=== PATIENT | female | born 1950 | race Caucasian/White ===

== ENCOUNTER 2021-01-24 08:07 | Emergency (ER) | payer OTHER ==
[2021-01-24] MEDS ORDERED: MORPHINE 2 MG/ML SYR ONE (09:13)
[2021-01-24] MEDS ORDERED: FAMOTIDINE 20 MG/2 ML VIAL IV ONE (09:14)
[2021-01-24] MEDS ORDERED: ONDANSETRON 4 MG/2 ML VIAL ONE (09:14)
[2021-01-24 09:34] LABS: Protime INR 1.01
[2021-01-24 09:35] LABS: Absolute Lymphocytes (CBC) 1.4 K/uL (0.7-4.9); Basophils % 1.1 % (0-1.3); Hematocrit 38.3 % (36.0-45.0); RBC Red Blood Cell Count 4.54 M/uL (3.86-4.86)
[2021-01-24 09:41] LABS: ALT/SGPT 22 U/L (12-78); AST/SGOT 12 U/L (15-37); Albumin 3.7 g/dL (3.4-5.0); Alkaline Phosphatase 117 U/L (45-117); BUN Blood Urea Nitrogen 18 mg/dL (7-18); Bicarbonate 27 mmol/L (21-32); Bilirubin Direct 0.1 mg/dL (0-0.2); Bilirubin Total 0.5 mg/dL (0.2-1.0); Glucose Level 103 mg/dL (74-106); Magnesium 2.2 mg/dL (1.8-2.4); NT PRO-BNP 135 pg/mL (<125); Potassium 3.6 mmol/L (3.5-5.1); Protein, Total 6.9 g/dL (6.4-8.2); Sodium Level 143 mmol/L (136-145); Troponin (Emerg Dept Use Only) < 0.02 ng/mL (0.0-0.045)
--- NOTE | 2021-01-24 10:50 | RAD REPORT ---
EXAM DESCRIPTION: CT - Abdomen Pelvis W Contrast - 01/24/2021 9:51 am CLINICAL HISTORY: ABD PAIN COMPARISON: No comparisons TECHNIQUE: Biphasic, helical CT imaging of the abdomen and pelvis was performed following 100 ml non -ionic IV contrast. No oral contrast administered. All CT scans are performed using dose optimization technique as appropriate and may include automated exposure control or mA/KV adjustment according to patient size. FINDINGS: No suspicious findings in the lung bases. The liver, spleen, and pancreas show no suspicious findings. Gallbladder and biliary tree are also wi thout suspicious finding. 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 These are gener ally incidental. Symmetric renal function is seen with no hydronephrosis or suspicious renal mass. No pyelonephritis o r acute parenchymal process. No bladder abnormalities. No adrenal abnormalities. Posterior right retr oflexed uterus shows no suspicious finding. No ovarian abnormality identifiable. No dilated bowel loops or bowel wall thickening. Appendix is normal. Moderate stool volume distends t he rectum and distal sigmoid colon. There is moderate stool volume elsewhere in the colon. No free air, pneumatosis or abnormal fluid collection. No hernia, mass or bulky lymphadenopathy. No suspicious bony findings. IMPRESSION: Contrast enhanced CT abdomen and pelvis showing no acute or emergent finding.
--- NOTE | 2021-01-24 11:03 | RAD REPORT ---
EXAM DESCRIPTION: RAD - Chest Single View - 01/24/2021 10:07 am CLINICAL HISTORY: Upper abdominal pain and SOB COMPARISON: August 2015 TECHNIQUE: AP portable chest image was obtained 01/24/2021 10:07 am . FINDINGS: Lungs are clear. Heart and vasculature are normal. No measurable pleural effusion and no p neumothorax. No acute bony abnormality seen. No acute aortic findings suspected. Insert stable IMPRESSION: No acute cardiopulmonary process.
--- NOTE | 2021-01-24 12:38 | EKG ---
Test Date: 2021-01-24 Test Time: 08:44:57 [place]: ALP MEASUREMENT RESULTS: Intervals: Rate: 65 [place]: 140 QRSD: 92 QT: 418 QTc: 434 [place]: P: 72 [place]: 140 QRS: 6 T: 10 INTERPRETIVE STATEMENTS: Sinus rhythm with occasional premature ventricular complexes Low voltage QRS Borderline ECG Compared to ECG 09/05/2015 03:28:17 Ventricular premature complex(es) now present Low QRS voltage now present ST (T wave) deviation no longer present Electronically Signed On 01-24-21 12:37:13 CDT by Arnaud Seo
--- NOTE | 2021-01-24 12:46 | EDPHYS ---
Physician Documentation [facility] Name: Beatrice Woods Age: 70 yrs Sex: Female : 1950 Arrival Date: 01/24/2021 Time: 08:11 Bed 14 Private MD: Jeet Thurman H ED Physician Tirso Zhao HPI: 01/24 08:59 This 70 yrs old Female presents to ER via Wheelchair with complaints of kdr Shortness Of Breath, rib pain. 08:59 The patient has shortness of breath at rest, with light activity. Onset: The kdr symptoms/episode began/occurred suddenly, just prior to arrival, this morning. Duration: The symptoms are intermittent, with no pattern. The patient's shortness of breath is aggravated by nothing, is alleviated by nothing. Associated signs and symptoms: The patient has no apparent associated signs or symptoms. Severity of symptoms: At their worst the symptoms were moderate severe just prior to arrival, in the emergency department the symptoms have improved moderately. The patient has not experienced similar symptoms in the past. The patient has not recently seen a physician. 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 - Social history:: Smoking status: Patient denies any tobacco usage or history of. ROS: 08:59 Constitutional: Negative for fever, chills, and weight loss, Eyes: Negative for injury, kdr pain, redness, and discharge, ENT: Negative for injury, pain, and discharge, Neck: Negative for injury, pain, and swelling, Cardiovascular: Negative for chest pain, palpitations, and edema, Respiratory: Negative for shortness of breath, cough, wheezing, and pleuritic chest pain, Back: Negative for injury and pain, : Negative for injury, bleeding, discharge, and swelling, MS/Extremity: Negative for injury and deformity, Skin: Negative for injury, rash, and discoloration, Neuro: Negative for headache, weakness, numbness, tingling, and seizure activity. Psych: Negative for depression, anxiety, suicide ideation, homicidal ideation, and hallucinations, Allergy/Immunology: Negative for hives, rash, and allergies, Endocrine: Negative for neck swelling, polydipsia, polyuria, polyphagia, and marked weight changes, Hematologic/Lymphatic: Negative for swollen nodes, abnormal bleeding, and unusual bruising. 08:59 Abdomen/GI: Positive for abdominal pain, nausea, Negative for diarrhea, constipation, black/tarry stool, rectal pain, rectal bleeding, bowel incontinence. Exam: 08:59 Constitutional: This is a well developed, well nourished patient who is awake, alert, kdr and in no acute distress. Head/Face: Normocephalic, atraumatic. Eyes: Pupils equal round and reactive to light, extra-ocular motions intact. Lids and lashes normal. Conjunctiva and sclera are non-icteric and not injected. Cornea within normal limits. Periorbital areas with no swelling, redness, or edema. Neck: Trachea midline, no thyromegaly or masses palpated, and no cervical lymphadenopathy. Supple, full range of motion without nuchal rigidity, or vertebral point tenderness. No Meningismus. Chest/axilla: Normal chest wall appearance and motion. Nontender with no deformity. No lesions are appreciated. Cardiovascular: Regular rate and rhythm with a normal S1 and S2. No gallops, murmurs, or rubs. Normal PMI, no JVD. No pulse deficits. Respiratory: Lungs have equal breath sounds bilaterally, clear to auscultation and percussion. No rales, rhonchi or wheezes noted. No increased work of breathing, no retractions or nasal flaring. Abdomen/GI: Soft, non-tender, with normal bowel sounds. No distension or tympany. No guarding or rebound. No evidence of tenderness throughout. Back: No spinal tenderness. No costovertebral tenderness. Full range of motion. Skin: Warm, dry with normal turgor. Normal color with no rashes, no lesions, and no evidence of cellulitis. MS/ Extremity: Pulses equal, no cyanosis. Neurovascular intact. Full, normal range of motion. Neuro: Awake and alert, GCS 15, oriented to person, place, time, and situation. Cranial nerves II-XII grossly intact. Motor strength 5/5 in all extremities. Sensory grossly intact. Cerebellar exam normal. Normal gait. Psych: Awake, alert, with orientation to person, place and time. Behavior, mood, and affect are within normal limits. 19:11 ECG was reviewed by the Attending Physician. kdr Vital Signs: 08:12 BP 121 / 83; Pulse 72; Resp 16; Temp 98.1; Pulse Ox 99% on R/A; Weight 72.57 kg; Height iw 5 ft. 4 in. (162.56 cm); 08:38 BP 135 / 87; Pulse 62; Resp 19; Pulse Ox 100% on R/A; ap3 10:08 BP 121 / 62; Pulse 55; Resp 16; Pulse Ox 100% on R/A; Pain 0/10; ap3 10:52 BP 125 / 76; Pulse 54; Resp 17; Pulse Ox 100% on R/A; ap3 11:48 BP 120 / 69; Pulse 62; Pulse Ox 100% on R/A; ap3 12:37 BP 104 / 71; Pulse 57; Resp 17; Pulse Ox 100% on R/A; ap3 08:12 Body Mass Index 27.46 (72.57 kg, 162.56 cm) iw MDM: 08:59 Data reviewed: vital signs, nurses notes, lab test result(s), radiologic studies. kdr Counseling: I had a detailed discussion with the patient and/or guardian regarding: the historical points, exam findings, and any diagnostic results supporting the discharge/admit diagnosis, lab results, radiology results, the need for outpatient follow up. 12:46 Patient medically screened. kdr 01/24 08:47 Order name: Basic Metabolic Panel kdr 01/24 08:47 Order name: CBC with Diff kdr 01/24 08:47 Order name: LFT's; Complete Time: 10:06 kdr 01/24 08:47 Order name: Magnesium; Complete Time: 10:06 kdr 01/24 08:47 Order name: NT PRO-BNP; Complete Time: 10:06 kdr 01/24 08:47 Order name: PT-INR; Complete Time: 10:06 kdr 01/24 08:47 Order name: Troponin (emerg Dept Use Only); Complete Time: 10:06 kdr 01/24 08:47 Order name: XRAY Chest (1 view); Complete Time: 11:09 kdr 01/24 08:48 Order name: CT Abd/Pelvis - IV Contrast Only; Complete Time: 11:09 kdr 01/24 08:48 Order name: Basic Metabolic Panel; Complete Time: 10:06 EDMS 01/24 08:48 Order name: CBC with Automated Diff; Complete Time: 10:06 [facility] 01/24 10:37 Order name: CREATININE WHOLE BLOOD; Complete Time: 11:09 [facility] 01/24 11:10 Order name: Troponin (emerg Dept Use Only); Complete Time: 12:43 kdr 01/24 08:47 Order name: EKG; Complete Time: 08:49 [facility] 01/24 08:47 Order name: Cardiac monitoring; Complete Time: 09:14 [facility] 01/24 08:47 Order name: EKG - Nurse/Tech; Complete Time: 08:49 kdr 01/24 08:47 Order name: IV Saline Lock; Complete Time: 09:14 kdr 01/24 08:47 Order name: Labs collected and sent; Complete Time: 09:14 [facility] 01/24 08:47 Order name: O2 Per Protocol; Complete Time: 08:49 kdr 01/24 08:47 Order name: O2 Sat Monitoring; Complete Time: 08:49 kdr EC:11 Rate is 62 beats/min. Rhythm is regular, Sinus Rhythm with No ectopy. QRS [place] is kdr Normal. MS interval is normal. QRS interval is normal. QT interval is normal. Clinical impression: NSR w/ Non-specific ST/T Changes. Administered Medications: 09:13 Drug: Pepcid (famotidine) 20 mg Route: IVP; Site: right antecubital; ap3 10:40 Follow up: Response: No adverse reaction ap3 09:14 Drug: morphine 2 mg Route: IVP; Site: right antecubital; ap3 10:40 Follow up: Response: No adverse reaction; Pain is decreased ap3 09:14 Drug: Zofran (Ondansetron) 4 mg Route: IVP; Site: right antecubital; ap3 10:40 Follow up: Response: No adverse reaction ap3 Disposition Summary: 01/24/21 12:46 Discharge Ordered Location: Home kdr Problem: new kdr Symptoms: have improved kdr Condition: Stable kdr Diagnosis - Abdominal pain, Generalized kdr Followup: kdr - With: Tirso Zhao MD - When: 2 - 3 days - Reason: If symptoms return, Further diagnostic work-up, Recheck today's complaints, Continuance of care, Re-evaluation by your physician Discharge Instructions: - Discharge Summary Sheet kdr - Abdominal Pain, Adult, [id number] kdr Forms: - Medication Reconciliation Form kdr - Thank You Letter kdr Signatures: Dispatcher Tirso Medina MD MD kdr Divya Kaminski RN RN iw Prokisch, Amanda, RN RN ap3
--- NOTE | 2021-01-24 12:46 | ER ---
Nurse's Notes [facility] Name: Beatrice Woods Age: 70 yrs Sex: Female : 1950 Arrival Date: 01/24/2021 Time: 08:11 Bed 14 Private MD: Jeet Thurman H Diagnosis: Abdominal pain, Generalized Presentation: 01/24 08:12 Chief complaint: Patient states: yesterday started feeling like she could not get a iw deep breath in, today she woke up and still felt SOB and feels a heaviness in diaphragm area, pt had negative COVID swab on Friday for traveling purposes, denies cough, fever. Coronavirus screen: Client presents with at least one sign or symptom that may indicate coronavirus-19. Ebola Screen: Patient negative for fever greater than or equal to 101.5 degrees Fahrenheit, and additional compatible Ebola Virus Disease symptoms Patient denies exposure to infectious person. Patient denies travel to an Ebola-affected area in the 21 days before illness onset. No symptoms or risks identified at this time. Initial Sepsis Screen: Does the patient meet any 2 criteria? No. Patient's initial sepsis screen is negative. Does the patient have a suspected source of infection? No. Patient's initial sepsis screen is negative. Risk Assessment: Do you want to hurt yourself or someone else? Patient reports no desire to harm self or others. Onset of symptoms was January 23, 2021. 08:12 Method Of Arrival: Wheelchair iw 08:12 Acuity: HOLDEN 3 iw Triage Assessment: 08:37 Respiratory: the patient has mild shortness of breath. 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 - Social history:: Smoking status: Patient denies any tobacco usage or history of. Screenin:37 Abuse screen: Denies threats or abuse. Nutritional screening: No deficits noted. ap3 Tuberculosis screening: No symptoms or risk factors identified. Fall Risk None identified. Assessment: 08:35 General: Appears uncomfortable, Behavior is calm, cooperative, appropriate for age. ap3 Pain: Complains of pain in diaphragm Pain does not radiate. Quality of pain is described as pressure, Pain began suddenly, this morning Is intermittent, Aggravated by deep breathing. Neuro: Level of Consciousness is awake, alert, obeys commands, Oriented to person, place, time, situation, Appropriate for age. Cardiovascular: Denies chest pain, Heart tones present. Respiratory: Reports pain with respiration since this morning Airway is patent Respiratory effort is even, unlabored, Respiratory pattern is regular, symmetrical, Breath sounds are clear bilaterally. GI: No signs and/or symptoms were reported involving the gastrointestinal system. : No signs and/or symptoms were reported regarding the genitourinary system. EENT: No signs and/or symptoms were reported regarding the EENT system. Derm: No signs and/or symptoms reported regarding the dermatologic system. 09:14 Cardiovascular: Rhythm is regular. ap3 10:27 Reassessment: Patient and/or family updated on plan of care and expected duration. Pain ap3 level reassessed. Patient is alert, oriented x 3, equal unlabored respirations, skin warm/dry/pink. Patient states symptoms have not improved. Vital Signs: 08:12 BP 121 / 83; Pulse 72; Resp 16; Temp 98.1; Pulse Ox 99% on R/A; Weight 72.57 kg; Height iw 5 ft. 4 in. (162.56 cm); 08:38 BP 135 / 87; Pulse 62; Resp 19; Pulse Ox 100% on R/A; ap3 10:08 BP 121 / 62; Pulse 55; Resp 16; Pulse Ox 100% on R/A; Pain 0/10; ap3 10:52 BP 125 / 76; Pulse 54; Resp 17; Pulse Ox 100% on R/A; ap3 11:48 BP 120 / 69; Pulse 62; Pulse Ox 100% on R/A; ap3 12:37 BP 104 / 71; Pulse 57; Resp 17; Pulse Ox 100% on R/A; ap3 08:12 Body Mass Index 27.46 (72.57 kg, 162.56 cm) iw ED Course: 08:11 Patient arrived in ED. am2 08:11 Jeet Thurman MD is Private Physician. am2 08:14 Triage completed. iw 08:15 Tirso Zhao MD is Attending Physician. kdr 08:16 Arm band placed on. iw 08:21 Prokisch, Ariella, RN is Primary Nurse. ap3 08:37 Patient has correct armband on for positive identification. Call light in reach. Side ap3 rails up X2. Adult w/ patient. monitoring manager on. Pulse ox on. NIBP on. Door closed. Noise minimized. 09:00 Inserted saline lock: 20 gauge in right antecubital area, using aseptic technique. ap3 Blood collected. 09:[address] via stretcher. ap3 09:51 CT Abd/Pelvis - IV Contrast Only In Process Unspecified. EDMS 09:57 XRAY at bedside. ap3 10:07 XRAY Chest (1 view) In Process Unspecified. EDMS 12:43 Tirso Zhao MD is Referral Physician. kdr 12:52 ED physician to see patient. ap3 12:56 No provider procedures requiring assistance completed. IV discontinued, intact, ap3 bleeding controlled, No redness/swelling at site. Pressure dressing applied. Administered Medications: 09:13 Drug: Pepcid (famotidine) 20 mg Route: IVP; Site: right antecubital; ap3 10:40 Follow up: Response: No adverse reaction ap3 09:14 Drug: morphine 2 mg Route: IVP; Site: right antecubital; ap3 10:40 Follow up: Response: No adverse reaction; Pain is decreased ap3 09:14 Drug: Zofran (Ondansetron) 4 mg Route: IVP; Site: right antecubital; ap3 10:40 Follow up: Response: No adverse reaction ap3 Outcome: 12:46 Discharge ordered by . kdr 12:56 Discharged to home ambulatory, with family. ap3 12:56 Condition: good 12:56 Discharge instructions given to patient, Instructed on discharge instructions, follow up and referral plans. Demonstrated understanding of instructions, follow-up care. 12:57 Patient left the ED. ap3 Signatures: Dispatcher [employer] EDMS Tirso Zhao MD MD kdr Williams, Irene, RN RN iw Moreno, Amanda am2 Prokisch, Amanda, RN RN ap3
[2021-01-24 13:05] VITALS: TEMP 98.1
[2021-01-24 13:06] VITALS: O2SAT 100
[2021-01-24 13:12] VITALS: BP 104/71
== END 2021-01-24 12:57 | disposition home or self-care (01) ==
LOC: ER 08:07
DX: R10.84 Generalized abdominal pain (principal)
CPT/HCPCS: 93005 ×3; 85025; 80048; 36415; 83735; 85610; 82565; 80076; 84484 ×2; 83880; 74177; 71045; 96375; 96374; 99285; Q9967; J2270; J2405

== ENCOUNTER 2021-11-03 06:20 | Emergency (ER) | payer OTHER ==
[2021-11-03 07:54] LABS: SARS-COV-2 RT PCR NEGATIVE (NEGATIVE)
--- NOTE | 2021-11-03 08:28 | ER ---
Nurse's Notes [facility] Name: Beatrice Woods Age: 71 yrs Sex: Female : 1950 Arrival Date: 11/03/2021 Time: 06: Bed 19 Private MD: Diagnosis: Acute bronchitis, unspecified Presentation: 11/03 06:29 Chief complaint: Patient states: "I saw my doctor earlier this week and they gave me a tw5 prednisolone. I have finished the steroids but I am still having a cough and runny nose. I am scared I am going to get pneumonia.". Coronavirus screen: Vaccine status: Patient reports being unvaccinated. Ebola Screen: Patient negative for fever greater than or equal to 101.5 degrees Fahrenheit, and additional compatible Ebola Virus Disease symptoms Patient denies exposure to infectious person. Patient denies travel to an Ebola-affected area in the 21 days before illness onset. Initial Sepsis Screen: Does the patient meet any 2 criteria? No. Patient's initial sepsis screen is negative. Does the patient have a suspected source of infection? Yes: Productive cough/pneumonia. Risk Assessment: Do you want to hurt yourself or someone else? Patient reports no desire to harm self or others. Onset of symptoms is unknown. 06:29 Method Of Arrival: Ambulatory tw5 06:29 Acuity: HOLDEN 3 tw5 Triage Assessment: 06:31 General: Appears in no apparent distress. Behavior is calm, cooperative, appropriate tw5 for age. Pain: Complains of pain in mid back area Pain currently is 1 out of 10 on a pain scale. Quality of pain is described as "Tightness". Respiratory: Reports cough that is persistent Onset: The symptoms/episode began/occurred at an unknown time. the patient has mild shortness of breath. 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 - Social history:: Smoking status: Patient denies any tobacco usage or history of. Screenin:03 Abuse screen: Denies threats or abuse. Nutritional screening: No deficits noted. ke1 Tuberculosis screening: No symptoms or risk factors identified. Fall Risk No fall in past 12 months (0 pts). No secondary diagnosis (0 pts). IV access (20 points). Ambulatory Aid- None/Bed Rest/Nurse Assist (0 pts). Gait- Normal/Bed Rest/Wheelchair (0 pts) Mental Status- Oriented to own ability (0 pts). Total [place] Fall Scale indicates No Risk (0-24 pts). Assessment: 07:04 Respiratory: Airway is patent Respiratory effort is even, unlabored, Breath sounds are ke1 diminished. 08:00 Reassessment: No changes from previously documented assessment. Patient and/or family ll1 updated on plan of care and expected duration. Pain level reassessed. Patient is alert, oriented x 3, equal unlabored respirations, skin warm/dry/pink. Cardiovascular: Rhythm is regular. 08:40 Reassessment: No changes from previously documented assessment. Patient and/or family ll1 updated on plan of care and expected duration. Pain level reassessed. Patient is alert, oriented x 3, equal unlabored respirations, skin warm/dry/pink. gait steady. Vital Signs: 06:29 BP 129 / 76; Pulse 97; Resp 18; Pulse Ox 97% on R/A; Weight 67.59 kg; Height 5 ft. 4 tw5 in. (162.56 cm); Pain 1/10; 07:30 BP 105 / 55; Pulse 52; Resp 15; Pulse Ox 97% on R/A; ll1 08:39 BP 110 / 68; Pulse 52; Resp 14; Temp 98.0; Pulse Ox 98% ; Pain 0/10; ll1 06:29 Body Mass Index 25.58 (67.59 kg, 162.56 cm) tw5 ED Course: 06:22 Patient arrived in ED. kz 06:31 Triage completed. tw5 06:32 Arm band placed on right wrist. EKG completed in triage. Results shown to MD. tw5 06:34 Tirso Zhao MD is Attending Physician. kdr 06:36 Nikky Humphrey RN is Primary Nurse. ke1 07:03 Inserted saline lock: 22 gauge in right forearm, using aseptic technique. ke1 07:04 Bed in low position. Side rails up X 1. ke1 07:09 Attending Physician role handed off by Tirso Zhao MD ma2 07:09 Terry Yañez MD is Attending Physician. ma2 08:20 CXR XRAY In Process Unspecified. EDMS 08:32 Primary Nurse role handed off by Nikky Humphrey RN 08:39 Nanda Begum, SANJUANA is Primary Nurse. 1 08:41 No provider procedures requiring assistance completed. IV discontinued, intact, ll1 bleeding controlled, No redness/swelling at site. Pressure dressing applied. Administered Medications: No medications were administered Outcome: 08:28 Discharge ordered by . al2 08:41 Discharged to home ambulatory. 1 08:41 Condition: stable 08:41 Discharge instructions given to patient, Instructed on discharge instructions, follow up and referral plans. medication usage, Demonstrated understanding of instructions, follow-up care, medications, Prescriptions given X 2. 08:41 Patient left the ED. 1 Signatures: Dispatcher [employer] EDVT Tirso Zhao MD MD kdr Alzahri, Mohammad, MD MD al2 Emily Garcia Lynsay, RN RN 1 Maryse Gaming [facility] Nikky Humphrey RN RN 1 Nargis Dick
--- NOTE | 2021-11-03 08:28 | EDPHYS ---
Physician Documentation [facility] Name: Beatrice Woods Age: 71 yrs Sex: Female : 1950 Arrival Date: 11/03/2021 Time: 06:22 Bed 19 Private MD: ED Physician Terry Yañez HPI: 11/03 06:53 This 71 yrs old Female presents to ER via Ambulatory with complaints of Breathing kdr Difficulty. 06:53 The patient has shortness of breath at rest, with light activity. Onset: The kdr symptoms/episode began/occurred gradually, Symptoms began on Friday. She was giving a Z-Abdon and prednisone on Friday. Since then she has taken and completed the medications given but has yet experienced significant improvement of her symptoms. Currently she is concerned that she may be developing pneumonia.. Duration: The symptoms are continuous, and are unchanged since they started. The patient's shortness of breath is aggravated by nothing, is alleviated by nothing. Associated signs and symptoms: Pertinent positives: productive cough. Severity of symptoms: At their worst the symptoms were mild in the emergency department the symptoms are unchanged. The patient has experienced a previous episode, last week. The patient has not recently seen a physician. As noted above the patient was seen by her PCP (Dr. Sabillon) earlier this week and given antibiotics and steroids. Since then she has not improved and is concerned that she may be getting pneumonia. 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 - Social history:: Smoking status: Patient denies any tobacco usage or history of. ROS: 06:53 Constitutional: Negative for fever, chills, and weight loss, Eyes: Negative for injury, kdr pain, redness, and discharge, Neck: Negative for injury, pain, and swelling, Cardiovascular: Negative for chest pain, palpitations, and edema, Abdomen/GI: Negative for abdominal pain, nausea, vomiting, diarrhea, and constipation, Back: Negative for injury and pain, : Negative for injury, bleeding, discharge, and swelling, MS/Extremity: Negative for injury and deformity, Skin: Negative for injury, rash, and discoloration, Neuro: Negative for headache, weakness, numbness, tingling, and seizure activity. Psych: Negative for depression, anxiety, suicide ideation, homicidal ideation, and hallucinations, Allergy/Immunology: Negative for hives, rash, and allergies, Endocrine: Negative for neck swelling, polydipsia, polyuria, polyphagia, and marked weight changes, Hematologic/Lymphatic: Negative for swollen nodes, abnormal bleeding, and unusual bruising. 06:53 Respiratory: Positive for cough, dyspnea on exertion, shortness of breath, wheezing, Negative for Exam: 06:53 Constitutional: This is a well developed, well nourished patient who is awake, alert, kdr and in no acute distress. Head/Face: Normocephalic, atraumatic. Eyes: Pupils equal round and reactive to light, extra-ocular motions intact. Lids and lashes normal. Conjunctiva and sclera are non-icteric and not injected. Cornea within normal limits. Periorbital areas with no swelling, redness, or edema. Neck: Trachea midline, no thyromegaly or masses palpated, and no cervical lymphadenopathy. Supple, full range of motion without nuchal rigidity, or vertebral point tenderness. No Meningismus. Chest/axilla: Normal chest wall appearance and motion. Nontender with no deformity. No lesions are appreciated. Cardiovascular: Regular rate and rhythm with a normal S1 and S2. No gallops, murmurs, or rubs. Normal PMI, no JVD. No pulse deficits. Respiratory: Lungs have equal breath sounds bilaterally, clear to auscultation and percussion. No rales, rhonchi or wheezes noted. No increased work of breathing, no retractions or nasal flaring. Abdomen/GI: Soft, non-tender, with normal bowel sounds. No distension or tympany. No guarding or rebound. No evidence of tenderness throughout. Back: No spinal tenderness. No costovertebral tenderness. Full range of motion. Skin: Warm, dry with normal turgor. Normal color with no rashes, no lesions, and no evidence of cellulitis. MS/ Extremity: Pulses equal, no cyanosis. Neurovascular intact. Full, normal range of motion. Neuro: Awake and alert, GCS 15, oriented to person, place, time, and situation. Cranial nerves II-XII grossly intact. Motor strength 5/5 in all extremities. Sensory grossly intact. Cerebellar exam normal. Normal gait. Psych: Awake, alert, with orientation to person, place and time. Behavior, mood, and affect are within normal limits. Vital Signs: 06:29 BP 129 / 76; Pulse 97; Resp 18; Pulse Ox 97% on R/A; Weight 67.59 kg; Height 5 ft. 4 tw5 in. (162.56 cm); Pain 1/10; 07:30 BP 105 / 55; Pulse 52; Resp 15; Pulse Ox 97% on R/A; ll1 08:39 BP 110 / 68; Pulse 52; Resp 14; Temp 98.0; Pulse Ox 98% ; Pain 0/10; ll1 06:29 Body Mass Index 25.58 (67.59 kg, 162.56 cm) tw5 MDM: 08:14 Differential diagnosis: Anxiety Reaction asthma, Bronchitis pneumonia, reactive airway ma2 disease. Data reviewed: vital signs, nurses notes. Counseling: I had a detailed discussion with the patient and/or guardian regarding: the historical points, exam findings, and any diagnostic results supporting the discharge/admit diagnosis, the presence of at least one elevated blood pressure reading (>120/80) during this emergency department visit, the need for outpatient follow up. 08:28 Patient medically screened. ma2 11/03 06:35 Order name: COVID-19/FLU A+B (Document "Date of Onset" if Symptomatic); Complete Time: tw5 08:10 11/03 06:35 Order name: CXR XRAY kdr Administered Medications: No medications were administered Disposition Summary: 11/03/21 08:28 Discharge Ordered Location: Home ma2 Condition: Stable ma2 Diagnosis - Acute bronchitis, unspecified ma2 Followup: ma2 - With: Private Physician - When: Tomorrow - Reason: If symptoms return, Continuance of care Discharge Instructions: - Discharge Summary Sheet ma2 - Acute Bronchitis, Adult ma2 Forms: - Medication Reconciliation Form ma2 - Thank You Letter ma2 - Antibiotic Education ma2 - Prescription Opioid Use ma2 Prescriptions: - Augmentin 875-125 mg Oral Tablet - take 1 tablet by ORAL route every 12 hours for 10 days; 20 tablet; Refills: 0, ma2 Product Selection Permitted - Diclofenac Sodium 75 mg Oral Tablet Sustained Release - take 1 tablet by ORAL route 2 times per day; 30 tablet; Refills: 0, Product ma2 Selection Permitted Signatures: Dispatcher [employer] Tirso Currie MD MD kdr Terry Yañez MD MD ma2 Maryse Gaming 5
[2021-11-03 08:49] VITALS: BP 110/68; TEMP 98; O2SAT 98
--- NOTE | 2021-11-03 09:04 | RAD REPORT ---
EXAM DESCRIPTION: RAD - Chest Single View - 11/03/2021 8:18 am CLINICAL HISTORY: COUGH Chest pain. COMPARISON: Chest Single View dated 01/24/2021; CHEST SINGLE VIEW dated 09/05/2015 FINDINGS: Portable technique limits examination quality. The lungs are grossly clear. The heart is normal in size. No displaced fractures. IMPRESSION: No acute intrathoracic process suspected.
--- NOTE | 2021-11-06 09:37 | EKG ---
Test Date: 2021-11-03 Test Time: 06:35:33 Die Cast Supervisor: MEASUREMENT RESULTS: Intervals: Rate: 56 NC: 142 QRSD: 84 QT: 448 QTc: 432 [place]: P: 79 NC: 142 QRS: 40 T: 25 INTERPRETIVE STATEMENTS: Sinus bradycardia Otherwise normal ECG Compared to ECG 01/24/2021 08:45:50 Sinus rhythm no longer present ST (T wave) deviation no longer present Electronically Signed On 11-06-21 09:32:18 CDT by Arnaud Seo
== END 2021-11-03 08:41 | disposition home or self-care (01) ==
LOC: ER 06:20
DX: J20.9 Acute bronchitis, unspecified (principal); Z20.822 Contact with and (suspected) exposure to COVID-19; E78.5 Hyperlipidemia, unspecified
CPT/HCPCS: 93005; 0240U; 71045; 99283

== ENCOUNTER 2023-12-08 04:30 | Emergency (ER) | payer OTHER ==
[2023-12-08] MEDS ORDERED: GUAIFENESIN/CODEINE 5ML UCUP ONE (04:58)
[2023-12-08] MEDS ORDERED: BENZONATATE 100 MG CAP PO ONE (04:58)
[2023-12-08 06:03] LABS: SARS-CoV-2 Antigen CONTROL BLUE LINE VIS/BG OK; SARS-CoV-2 Antigen Rapid Res Negative (Negative)
--- NOTE | 2023-12-08 06:05 | ER ---
Nurse's Notes [facility] Name: Beatrice Woods Age: 73 yrs Sex: Female : 1950 Arrival Date: 12/08/2023 Time: 04:30 Bed 5 Private MD: Diagnosis: Viral infection, unspecified Presentation: 12/07 04:48 Chief complaint: Patient states: Dry cough and sore throat x1 week. Denies fever. kb3 Coronavirus screen: Vaccine status: Patient reports being unvaccinated. Client indicates they have traveled out of the [place] in the last 14 days. Client traveled to: [place] Client presents with at least one sign or symptom that may indicate coronavirus-19. Ebola Screen: Patient negative for fever greater than or equal to 101.5 degrees Fahrenheit, and additional compatible Ebola Virus Disease symptoms Patient denies exposure to infectious person. Patient denies travel to an Ebola-affected area in the 21 days before illness onset. Initial Sepsis Screen: Does the patient meet any 2 criteria? No. Patient's initial sepsis screen is negative. Does the patient have a suspected source of infection? No. Patient's initial sepsis screen is negative. Risk Assessment: Do you want to hurt yourself or someone else? Patient reports no desire to harm self or others. Onset of symptoms was December 01, 2023. 04:48 Method Of Arrival: Ambulatory [facility] 04:48 Acuity: HOLDEN 3 kb3 Triage Assessment: 04:51 General: Appears in no apparent distress. Behavior is calm, cooperative. Pain: kb3 Complains of pain in uvula, left aspect of posterior pharynx and right aspect of posterior pharynx Pain does not radiate. Pain currently is 6 out of 10 on a pain scale. Quality of pain is described as burning, sharp. EENT: Throat is pink. 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 Last tetanus immunization: up to date Pneumococcal vaccine is up to date, Flu vaccine is not up to date. - Infectious Disease History:: Denies. - Social history:: Smoking status: Patient denies any tobacco usage or history of. Screenin:38 [facility] ED Fall Risk Assessment (Adult) History of falling in the last 3 months, jb4 including since admission No falls in past 3 months (0 pts) Confusion or Disorientation No (0 pts) Intoxicated or Sedated No (0 pts) Impaired Gait No (0 pts) Mobility Assist Device Used No (0 pt) Altered Elimination No (0 pt) Score/Fall Risk Level 0 - 2 = Low Risk Oriented to surroundings, Maintained a safe environment. Abuse screen: Denies threats or abuse. Nutritional screening: No deficits noted. Tuberculosis screening: No symptoms or risk factors identified. Assessment: 05:38 General: Appears in no apparent distress. comfortable, Behavior is calm, cooperative, jb4 appropriate for age. Pain: Complains of pain in soar throat. Pain does not radiate. Pain currently is 6 out of 10 on a pain scale. Neuro: Level of Consciousness is awake, alert, obeys commands, Oriented to person, place, time, situation. Cardiovascular: Patient's skin is warm and dry. Respiratory: Airway is patent Respiratory effort is even, unlabored, Respiratory pattern is regular, symmetrical. GI: No signs and/or symptoms were reported involving the gastrointestinal system. : No signs and/or symptoms were reported regarding the genitourinary system. EENT: No signs and/or symptoms were reported regarding the EENT system. Derm: No signs and/or symptoms reported regarding the dermatologic system. Musculoskeletal: Circulation, motion, and sensation intact. Range of motion: intact in all extremities. 06:12 Reassessment: Patient appears in no apparent distress at this time. Patient and/or jb4 family updated on plan of care and expected duration. Pain level reassessed. Patient is alert, oriented x 3, equal unlabored respirations, skin warm/dry/pink. Vital Signs: 04:48 BP 115 / 66; Pulse 55; Resp 18; Pulse Ox 96% ; Weight 68.04 kg; Height 5 ft. 4 in. ; kb3 Pain 6/10; 04:48 Body Mass Index 25.75 (68.04 kg, 162.56 cm) kb3 04:48 Pain Scale: Adult kb3 ED Course: 04:34 Patient arrived in ED. ec2 04:34 Andrew Montgomery MD is Attending Physician. ec2 04:50 Triage completed. kb3 04:51 Arm band placed on right wrist. kb3 05:16 CXR XRAY In Process Unspecified. EDMS 05:38 Patient has correct armband on for positive identification. Bed in low position. Call jb4 light in reach. Side rails up X 1. Provided Education on: plan of care. 06:12 No provider procedures requiring assistance completed. Patient did not have IV access jb4 during this emergency room visit. Administered Medications: 04:50 CANCELLED (Physician Discretion): [id number] mg PO once ec2 05:04 Drug: Tessalon Perle PO 100 mg PO once Route: PO; jb4 05:04 Drug: Codeine-Guaifenesin PO Liquid (10 mg-100 mg/5 mL) 5 ml PO once Route: PO; jb4 Medication: 05:38 VIS not applicable for this client. jb4 Outcome: 06:05 Discharge ordered by . ec2 06:12 Discharged to home ambulatory, with family, jb4 06:12 Condition: stable 06:12 Discharge instructions given to patient, Instructed on discharge instructions, follow up and referral plans. medication usage, Demonstrated understanding of instructions, follow-up care, medications, Prescriptions given X 2, 06:13 Patient left the ED. jb4 Signatures: Dispatcher [employer] Ronald Monk, RN RN jb4 Nargis Perez, SANJUANA RN kb3 Andrew Montgomery MD MD ec2
--- NOTE | 2023-12-08 06:06 | EDPHYS ---
Physician Documentation [facility] Name: Beatrice Woods Age: 73 yrs Sex: Female : 1950 Arrival Date: 12/08/2023 Time: 04:30 Bed 5 Private MD: ED Physician Andrew Montgomery HPI: 12/07 04:48 This 73 yrs old Female presents to ER via Unassigned with complaints of ec2 Cough, Sore Throat. 04:48 Patient arrives today for evaluation of 1 week of cough and cold symptoms. Patient ec2 reports that she been experiencing a cough, she reports it is nonproductive, reports no fevers or chills, denies nausea or vomiting. Patient reports no issues with p.o. intake. Patient reports no known sick contacts. Has tried [id number] medications with minimal alleviation of symptoms.. 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 Last tetanus immunization: up to date Pneumococcal vaccine is up to date, Flu vaccine is not up to date. - Infectious Disease History:: Denies. - Social history:: Smoking status: Patient denies any tobacco usage or history of. ROS: 04:48 Constitutional: as per hpi ec2 Exam: 04:48 Constitutional: GEN: NAD Head: atraumatic Eyes: EOMI Ears: External ears are normal. ec2 Mouth: No posterior pharyngeal erythema, no anterior cervical lymphadenopathy noted. CV: regular rate LUNGS: no respiratory distress, no wheezes, rales, rhonchi ABD: non-distended SKIN: no evidence of rashes MSK: no evidence of trauma NEURO: moves all extremities equally Vital Signs: 04:48 BP 115 / 66; Pulse 55; Resp 18; Pulse Ox 96% ; Weight 68.04 kg; Height 5 ft. 4 in. ; kb3 Pain 6/10; 04:48 Body Mass Index 25.75 (68.04 kg, 162.56 cm) kb3 04:48 Pain Scale: Adult kb3 MDM: 04:35 Patient medically screened. ec2 04:48 Data reviewed: vital signs. ED course: Patient arrives today for 1 week of URI signs ec2 and symptoms. Examination remarkable for well-appearing nontoxic vigorous otherwise in no acute distress with a reassuring examination. Will obtain chest x-ray, viral swab as well as strep swab. Evaluating for differential diagnosis including strep pharyngitis, viral infection, pneumonia. . 06:02 ED course: On reassessment patient with improvement in symptoms. . ec2 06:04 ED course: Negative flu and COVID testing. . ec2 06:05 ED course: Strep testing negative. Will discharge home from suspect viral infection. ec2 Return precautions given. 06:08 ED course: Chest x-ray independently reviewed and interpreted by me, shows no evidence ec2 of pneumonia, no acute intrathoracic process. 12/07 04:48 Order name: Strep; Complete Time: 06:05 ec2 12/07 04:51 Order name: Influenza Screen (a \T\ B); Complete Time: 06:04 ec2 12/07 04:51 Order name: SARS RAPID; Complete Time: 06:04 ec2 12/07 06:07 Order name: Throat Culture EDMS 12/07 04:48 Order name: CXR XRAY ec2 Administered Medications: 04:50 CANCELLED (Physician Discretion): [id number] mg PO once ec2 05:04 Drug: Tessalon Perle PO 100 mg PO once Route: PO; jb4 05:04 Drug: Codeine-Guaifenesin PO Liquid (10 mg-100 mg/5 mL) 5 ml PO once Route: PO; jb4 Disposition Summary: 12/08/23 06:05 Discharge Ordered Notes: Location: Home ec2 Condition: Stable ec2 Diagnosis - Viral infection, unspecified ec2 Followup: ec2 - With: Private Physician - When: - Reason: Re-evaluation by your physician Discharge Instructions: - Discharge Summary Sheet ec2 - Viral Illness, Adult ec2 Forms: - Medication Reconciliation Form ec2 - Antibiotic Education ec2 - Prescription Opioid Use ec2 - Patient Portal Instructions ec2 - Leadership Thank You Letter ec2 Prescriptions: - codeine-guaifenesin 10-200 mg/5 mL Oral liquid - take 10 milliliter ORAL route every 6 hours; 100 milliliter; Refills: 0, ec2 Product Selection Permitted - Tessalon Perles 100 mg Oral Capsule - take 1 capsule ORAL route every 8 hours As needed; 15 capsule; Refills: 0, ec2 Product Selection Permitted Signatures: Dispatcher [employer] EDRonald Jules, RN RN jb4 Nargis Perez RN RN kb3 Andrew Montgomery MD MD ec2 Corrections: (The following items were deleted from the chart) 04:48 04:48 Group A Streptococcus Rapid Sc+BA.LAB.BRZ ordered. EDMS EDMS 04:50 04:48 Promethazine PO 25 mg PO once ordered. ec2 ec2 04:51 04:51 Influenza Screen (A \T\ B)+BA.LAB.BRZ ordered. EDMS EDMS 04:51 04:51 SARS-COV-2 Antigen Rapid+I.LAB.BRZ ordered. EDMS EDMS 05:18 04:48 COVID-19/FLU A+B/RSV+MOL.LAB.BRZ ordered. EDMS EDMS
[2023-12-08 06:22] VITALS: BP 115/66; O2SAT 96
--- NOTE | 2023-12-08 16:49 | RAD REPORT ---
EXAM DESCRIPTION: RAD - Chest Single View - 12/08/2023 5:14 am CLINICAL HISTORY: Cough COMPARISON: Chest 1 View AP 11/03/2021 TECHNIQUE: Chest 1 View AP FINDINGS: Heart size and pulmonary vessels within normal limits. Small hazy opacity at inferolateral left lung field. No significant pleural effusion or pneumothorax. Moderate osteopenia. Thoracic spine degenerative disease. IMPRESSION: Small, hazy, inferolateral, left lung field opacity. Causes include subsegmental atelectasis, scar/fibrosis, and infection. Electronically signed by: Oren Aguilar MD 12/08/2023 07:16 AM CDT RP Due to temporary technical issues with the PACS/Fluency reporting system, reports are being signed by the in house radiologists without review as a courtesy to insure prompt reporting. The interpreting radiologist is fully responsible for the content of the report.
== END 2023-12-08 06:13 | disposition home or self-care (01) ==
LOC: ER 04:30
DX: B34.9 Viral infection, unspecified (principal); Z11.52 Encounter for screening for COVID-19; Z28.310 Unvaccinated for COVID-19
CPT/HCPCS: 36415; 71045; 87070; 87081; 87804; 87811; 99283

== ENCOUNTER 2025-03-04 07:37 | Day surgery (SDC) | payer OTHER ==
[2025-02-28 11:48] LABS: Absolute Lymphocytes (CBC) 1.4 K/uL (0.7-4.9); Hematocrit 38.9 % (36.0-45.0); Hemoglobin 13.1 g/dL (12.0-15.0); MCH 28.2 pg (27.0-35.0); MCHC 33.6 g/dL (32.0-36.0); MCV 84.0 fL (80-100); MPV 8.0 fL (7.6-11.3); Nucleated RBC Absolute Count 0.0 (0-0); Nucleated Red Blood Cells % 0.1 % (0-0); RBC Red Blood Cell Count 4.63 M/uL (3.86-4.86); White Blood Count 5.20 thou/uL (4.3-10.9)
[2025-02-28 11:57] LABS: Anion Gap 8.0 mEq/L (5.0-15.0); BUN Blood Urea Nitrogen 11.0 mg/dL (7-18); Glucose Level 90.0 mg/dL (74-106); Potassium 4.0 mEq/L (3.5-5.1)
[2025-03-04] MEDS: Ringers Lactate 1,000 ML IV ONE (08:05)
[2025-03-04] MEDS ORDERED: LIDOCAINE 2% MPF 5 ML VIAL ONE (09:54)
[2025-03-04] MEDS ORDERED: ONDANSETRON 4 MG/2 ML VIAL ONE (09:55)
[2025-03-04] MEDS ORDERED: FENTANYL CITR 100 MCG/2 ML ONE (09:55)
[2025-03-04] MEDS: LIDOCAINE HCL/EPINEPHRINE 20 ML MDV ONE (10:50)
--- NOTE | 2025-03-04 13:12 | P.OP ---
Income Tax Investigator: NONE,NONE Preoperative diagnosis: Neoplasm uncertain behavior, nose Postoperative diagnosis: Basal cell carcinoma, nose Primary procedure: Excision malignant skin lesion, nose 1.3 cm Secondary procedure: Closure via local tissue rearrangement by rhomboid flap Anesthesia: Monitored anesthesia care with sedation and local injection Estimated blood loss: Less than 5 mL Specimen: Nasal lesion, frozen section suture guy 12:00/superior Findings: Basal cell carcinoma with negative peripheral and deep margin Operative Technique: The patient was brought to the operating room placed under sedation with propofol infusion. The skin of the nose was examined and there was a 4 mm flesh colored firm nodule whose appearance was clinically suspicious for basal cell carcinoma. A 2 to 3 mm peripheral margin was designed around the lesion. The area of the nose was injected with 1% lidocaine with epinephrine. The patient's face was prepped and draped in a sterile fashion. After time for the local to take effect, a 15 blade scalpel was used to incise around the planned incision to the level of the subcutaneous fat. A marking suture was placed at the superiormost aspect of the specimen to indicate 12:00. The skin edges were elevated using forceps and the lesion was sharply extirpated from the underlying cartilage and muscle tissue. The specimen was sent to pathology for frozen section analysis. After cessation of supplemental oxygen and clearance of the immediate area using suction, needlepoint Bovie electrocautery was applied to bleeding areas at the base and periphery of the wound. The wound was examined and measured 1.3 cm in diameter encompassing full-thickness of the skin of the left supra tip region but not involving the nasal ala. While awaiting pathology results, the reconstruction options were considered. Given the size and location a local flap was felt to be the best option in regards to speed of healing, avoidance of secondary surgical site and avoidance of need for extensive wound care. The wound edges were elevated using a double hook and the needlepoint Bovie electrocautery was used to widely undermined circumferentially around the wound with undermining of approximately 0.5 cm inferiorly and extending 2.5 to 3 cm superiorly and 1 -1.5 cm laterally and medially. The frozen section pathology results confirmed basal cell carcinoma with negative peripheral and deep margin. Decision was made to proceed with a rhomboid rotational advancement flap. A rhomboid with length 1.5 cm with a superior/medial base was designed and cut at the superior aspect of the wound. The flap was then rotated and advanced into place and secured with multiple 4 -0 Vicryl sutures securing the flap in place. The skin was then closed in a running fashion using 5-0 plain gut suture. The skin was cleaned and antibiotic ointment applied to the incision. Patient was returned to care of anesthesia for cessation of sedation and transferred to the recovery room. Disposition: The patient will be discharged home later today in the care of her family. A specific wound care instructions including cleaning with gentle soap twice daily followed by application of ointment was reviewed. If there is significant crusting the patient/family can use a Q-tip soaked with peroxide to gently loosen any stubborn crusting. Otherwise peroxide and alcohol should be avoided. Patient has a scheduled follow-up on postop day 11 for wound evaluation but is welcome to contact the clinic should any earlier concerns occur. Complications: None Implants: None Fluids & blood products: See anesthesia record Transferred to: Recovery Room Condition: Good
[2025-03-04 14:36] VITALS: O2SAT 100
[2025-03-04 14:47] VITALS: BP 138/70; TEMP 97.4
== END 2025-03-04 12:50 | disposition home or self-care (01) ==
LOC: OR 07:37
PROVIDERS: ATTEND Otolaryngology
PROC: 0HX1XZZ Transfer Face Skin, External Approach (ICD-10-PCS; principal; 2025-03-04 09:15)
DX: C44.311 Basal cell carcinoma of skin of nose (principal)
CPT/HCPCS: 93005; 85025; 80048; 36415; 88331; 88332; 88305; 14060; J2704; J3010; J2405; J7120; J2003